=== PATIENT | male | born 1940 | race Hispanic/Latino ===

== ENCOUNTER 2020-06-03 23:12 | Inpatient (IN) | payer MEDICARE, OTHER ==
[2020-06-03 23:45] LABS: #Basophils 0.1 thou/uL (0.0-0.2); #Eosinphils 0.2 thou/uL (0.0-0.7); #Lymphocytes 0.9 thou/uL (1.20-3.40); #Monocytes 0.6 thou/uL (0.11-0.59); #Neutrophils 6.4 thou/uL (1.40-6.50); %Basophils 1.2 % (0.0-1.0); %Eosinophils 2.1 % (0.0-10.0); %Lymphocytes 10.8 % (21.0-51.0); Hemoglobin 10.8 g/dL (14.0-18.0); Mean Corpuscular HGB CONC 30.8 g/dL (32.0-36.0); Mean Corpuscular Hemoglobin 25.7 pg (27.0-31.0); Mean Corpuscular Volume 83.4 fL (78.0-98.0); Mean Platelet Volume 9.7 fL (7.4-10.4); Platelet Count 218 thou/uL (130-400); RBC Distribution Width 16.5 % (11.5-14.5); Red Blood Cell (RBC) Count 4.19 mill/uL (4.70-6.10); White Blood Cell (WBC) Count 8.1 thou/uL (4.8-10.8)
--- NOTE | 2020-06-03 23:58 | RAD ---
XR Chest 1 View Portable History: Dyspnea Comparison: Radiograph May 20, 2020 Findings: Heart size is enlarged. Mild pulmonary edema. Layering pleural effusion on the right. Atelectasis in left lung base. No pneumothorax. Repeat debris projects over the right hemithorax. Impression: Mild decompensated congestive heart failure.
[2020-06-04 00:10] LABS: ALT (SGPT) 31 U/L (8-55); AST (SGOT) 41 U/L (5-34); Albumin 3.7 g/dL (3.4-4.8); Alkaline Phosphatase 194 U/L (40-110); Anion Gap 15 mmol/L (10-20); BUN (Urea Nitrogen) 28 mg/dL (8.4-25.7); Bilirubin, Total 0.8 mg/dL (0.2-1.2); Calc. Creatinine Clearance 0 mL/min (70-130); Calcium 9.4 mg/dL (7.8-10.44); Carbon Dioxide 27 mmol/L (23-31); Chloride 97 mmol/L (98-107); Estimated GFR-MDRD 43; Globulin 4.1 g/dL (2.4-3.5); Glucose 151 mg/dL (83-110); Potassium 5.7 mmol/L (3.5-5.1); Protein, Total 7.8 g/dL (5.8-8.1); Sodium 133 mmol/L (136-145)
[2020-06-04 00:20] LABS: Bilirubin Negative (Negative); Blood, Urine 2+ (Negative); Clarity Clear (Clear); Glucose, Urine (Dipstick) Normal (Negative); Ketone, Urine Negative (Negative); Leukocyte 500 Leu/uL (Negative); Nitrite Negative (Negative); Protein, Urine (Dipstick) 50 mg/dL (Neg-Trace); RBC/HPF 21-50 HPF (0-3); Specific Gravity, Urine 1.009 (1.002-1.036); Squamous Epithelial None Seen HPF (0-3); Urobilinogen Normal mg/dL (Less than 2); WBC/HPF 21-50 HPF (0-3); pH, Urine 6.5 (5.0-9.0)
[2020-06-04 00:22] LABS: Bacteria/HPF 1+ HPF (None Seen)
[2020-06-04] MEDS ORDERED: Furosemide 40 MG/4 ML VIAL ONE (00:44)
[2020-06-04] MEDS ORDERED: cefTRIAXone\\ROCEPHIN 2 GM VIAL ONE (00:44)
[2020-06-04 00:54] LABS: CKMB 3.3 ng/mL (0-6.6)
[2020-06-04 02:08] LABS: Analyzer IN Cardio ER; CO2 Tension 39.4 mmHg (35.0-45.0); Calcium, Ionized (arterial) 1.21 mmol/L (1.12-1.30); Carboxyhemoglobin (COHb) 1.4 gm% (0.0-3.0); Hemoglobin (Hb) 11.7 g/dL (14.0-18.0); Potassium - ABG Lab 4.46 mmol/L (3.70-5.30); pH, Arterial 7.45 (7.35-7.45)
[2020-06-04 02:13] LABS: O2 Tension (PaO2), arterial 51.3 mmHg (> 70.0)
[2020-06-04 02:14] LABS: Puncture Site L RADIAL
[2020-06-04 05:09] VITALS: BMI 28.0
[2020-06-04 05:38] LABS: Troponin I 0.076 ng/mL (< 0.028)
[2020-06-04] MEDS ORDERED: Senokot S 8.6-50 MG TAB PO PRN (09:54)
[2020-06-04] MEDS ORDERED: Acetaminophen 325 MG TAB PO PRN (09:54)
[2020-06-04] MEDS ORDERED: Vancomycin HCl 1.25 GM in Sodium Chloride 0.9% 250 ML 250 ML IVPB SCH (12:00)
[2020-06-04] MEDS ORDERED: hydrALAZINE 25 MG TAB PO SCH (12:15)
[2020-06-04] MEDS ORDERED: Apixaban 5 MG TAB PO SCH ×2 (12:15→21:00)
[2020-06-04] MEDS ORDERED: clonazePAM 0.5 MG TAB PO SCH ×2 (12:15→21:00)
[2020-06-04 12:45] LABS: #Basophils 0.1 thou/uL (0.0-0.2); #Eosinphils 0.1 thou/uL (0.0-0.7); #Lymphocytes 0.6 thou/uL (1.20-3.40); #Monocytes 0.5 thou/uL (0.11-0.59); #Neutrophils 4.2 thou/uL (1.40-6.50); %Basophils 1.5 % (0.0-1.0); %Eosinophils 2.5 % (0.0-10.0); %Lymphocytes 11.6 % (21.0-51.0); %Monocytes 8.1 % (0.0-10.0); %Neutrophils 76.3 % (42.0-75.0); Mean Corpuscular Hemoglobin 26.8 pg (27.0-31.0); Mean Corpuscular Volume 83.8 fL (78.0-98.0); Mean Platelet Volume 8.5 fL (7.4-10.4); Platelet Count 192 thou/uL (130-400); RBC Distribution Width 16.2 % (11.5-14.5); Red Blood Cell (RBC) Count 3.73 mill/uL (4.70-6.10); White Blood Cell (WBC) Count 5.5 thou/uL (4.8-10.8)
[2020-06-04 13:11] LABS: ALT (SGPT) 28 U/L (8-55); AST (SGOT) 25 U/L (5-34); Albumin 3.4 g/dL (3.4-4.8); Alkaline Phosphatase 182 U/L (40-110); Anion Gap 14 mmol/L (10-20); BUN (Urea Nitrogen) 26 mg/dL (8.4-25.7); Bilirubin, Total 0.7 mg/dL (0.2-1.2); Calc. Creatinine Clearance 50 mL/min (70-130); Calcium 8.9 mg/dL (7.8-10.44); Carbon Dioxide 28 mmol/L (23-31); Chloride 98 mmol/L (98-107); Estimated GFR-MDRD 47; Globulin 3.3 g/dL (2.4-3.5); Glucose 182 mg/dL (83-110); Potassium 4.2 mmol/L (3.5-5.1); Protein, Total 6.7 g/dL (5.8-8.1); Sodium 136 mmol/L (136-145)
[2020-06-04 13:19] LABS: Troponin I 0.099 ng/mL (< 0.028)
[2020-06-04] MEDS ORDERED: Piperacillin/Tazobactam 3.375 GM in Sodium Chloride 0.9% 100 ML IVPB SCH (14:00)
[2020-06-04 14:51] LABS: SARS-CoV-2 MS2 Positive; SARS-CoV-2 N Gene Negative; SARS-CoV-2 S Gene Negative; SARS-CoV-2 by NAA Not Detected (NotDetected); SARS-CoV-2 orf1ab Negative
[2020-06-04 15:46] LABS: Actual Bicarbonate (HCO3a) 28.9 mEq/L (22-28); Base Excess (BEa) 4.3 mEq/L (-2.0 to +3.0); CO2 Tension 43.5 mmHg (35.0-45.0); Calcium, Ionized (arterial) 1.18 mmol/L (1.12-1.30); Carboxyhemoglobin (COHb) 1.6 gm% (0.0-3.0); Hemoglobin (Hb) 10.6 g/dL (14.0-18.0); O2 Tension (PaO2), arterial 72.1 mmHg (> 70.0); Potassium - ABG Lab 4.03 mmol/L (3.70-5.30); pH, Arterial 7.44 (7.35-7.45)
[2020-06-04 15:48] LABS: ALV-art Gradient 115.945 mmHg (0-20)
[2020-06-04] MEDS: Piperacillin/Tazobactam 3.375 GM in Sodium Chloride 0.9% 100 ML IVPB SCH ×2 (15:57→21:01)
[2020-06-04] MEDS ORDERED: Atropine Sulfate 0.4 mg/1 ml Vial IVP SCH (16:30)
[2020-06-04] MEDS: DOBUTamine 500 mg/250 ml 250 ML IVPB SCH (17:38)
--- NOTE | 2020-06-04 19:44 | CT ---
CT Chest WO Con History: Dyspnea. Abnormal chest x-ray Comparison: Radiograph prior day Findings: Large bilateral layering pleural effusions. Mild pulmonary edema. No definite pneumonia is appreciated. Compressive atelectasis within both lower lobes. The exam was performed in expiration. No pneumothorax. Radiopaque debris projects over the right lateral chest wall. Moderate stool burden within the upper abdomen, incompletely evaluated. No pleural nodularity. Aortic contour is nonaneurysmal. Pulmonary trunk is enlarged. Mildly prominent likely reactive paratr acheal and AP window lymph nodes. Diffuse etiopathic skeletal hyperostosis thoracic spine. Motion artifact of the manubrium. No acute displaced rib fracture. Nodular mass just behind the left nipple. Impression: 1. Decompensated congestive heart failure. 2. Nodular mass just under left nipple may reflect gynecomastia. Diagnostic mammography nonemergent r ecommended clinically warranted.
[2020-06-04] MEDS ORDERED: Vancomycin HCl 1.75 GM in Sodium Chloride 0.9% 500 ML IVPB SCH (21:00)
[2020-06-04] MEDS: hydrALAZINE 25 MG TAB PO SCH (21:01)
[2020-06-04] MEDS: Tamsulosin HCl 0.4 MG CAP PO SCH (21:02)
[2020-06-04] MEDS ORDERED: Cepastat Lozenges 1 LOZ PO PRN (22:16)
--- NOTE | 2020-06-05 00:22 | HP ---
CHIEF COMPLAINT: Shortness of breath, confusion, hypoxia. HISTORY OF PRESENT ILLNESS: The patient is a 79-year-old male, who was transferred from [facility] with acute confusion and hypoxia. The patient was discharged on 05/27/2020 from [facility] for which over there he was treated for bacteremia with Providencia stuartii, hypokalemia, cellulitis of the lower extremity, and sepsis. He was also noted to have pulmonary edema. At this time, he was sent home with oral antibiotics to complete a seven-day course which he did. The patient was noted to be confused at the [facility] and was brought here for further evaluation. Per the ER records, the patient was noted to be more confused than his baseline and was noted to have low oxygen levels. At this time, he was brought into the hospital for further evaluation. The patient currently denies any chest pain, shortness of breath, however, he does complain of unable to ambulate very much. REVIEW OF SYSTEMS: All negative except for the ones mentioned above in the HPI. PAST MEDICAL HISTORY: He has a history of: 1. Atrial fibrillation. 2. Bradycardia, unclear if it is junctional or atrial fibrillation with slow ventricular response. 3. Diabetes. PAST SURGICAL HISTORY: He has had a cholecystectomy, an open procedure with a very large abdominal incision scar. This was about 45 to 50 years ago, and was performed in [place]. MEDICATION: Per his last discharge medications, he is on the following medications: 1. Omnicef 300 mg twice a day for 7 days, which he completed. 2. Amlodipine 5 mg twice a day. 3. Eliquis 5 mg twice a day. 4. Hydralazine 25 mg b.i.d. 5. Protonix 40 mg daily. 6. Florastor 250 mg daily. 7. Tessalon Perles three times a day as needed. ALLERGIES: HE HAS NO KNOWN DRUG ALLERGIES. CODE STATUS: He is a full code. SOCIAL HISTORY: He denies any smoking history. He has a history of alcohol use. No drug use. PHYSICAL EXAMINATION: VITAL SIGNS: As of the following; temperature of 98.5, 55, 20, 93% on 2 L, 151/67. GENERAL: He is awake, oriented x2. CV: S1, S2 present. Sinus joanna noticed on checking his pulse. LUNGS: He has crackles to bilateral lower lung bases. ABDOMEN: Soft. Bowel sounds are present x2. Pain upon palpation to lower abdomen area. EXTREMITIES: He has significant venous changes. Pedal pulses are present bilaterally. He has also some old dry skin noted to bilateral lower extremities. NEUROVASCULAR: No focal deficits noted. SKIN: As I mentioned, significant venous stasis changes to his lower extremity and significant dry skin noted. LABORATORY RESULTS: As of the following: Sodium of 136, potassium of 4.2, BUN 26, creatinine 1.46. His troponin was 0.099. His procalcitonin was 0.08. His hematology; his WBC is 5.5, hemoglobin of 10.0, hematocrit of 31.2, platelets of 192. His COVID test was negative. His urine had some leukocyte esterase of 500, white blood cells of 21-50, no squamous epithelial cells. He did have a chest x-ray which according to my interpretation appears to have possible infiltrate on his right versus pulmonary edema. ASSESSMENT AND PLAN: The patient is a very pleasant 79-year-old male, who presents to the hospital with complaints of shortness of breath, hypoxia, and confusion. 1. Acute hypoxic respiratory failure. The patient had an ABG done which indicated a pO2 of 51.3. He was put initially on high-flow, then was changed to nasal cannula. So far, he is doing well. 2. Possible heart failure versus pneumonia. However, his BNP was only mildly elevated at 177. I will go ahead and get a CT of chest without contrast. We will start him on some broad-spectrum antibiotics for possible hospital-acquired pneumonia for now, and we will continue to monitor this patient. 3. Acute metabolic encephalopathy, most likely secondary to problem #1. His mentation currently has improved. We will continue to monitor. 4. Bradycardia, significant. The patient dips down to the 30s, when he sleeps. His EKG appears to be possible junctional versus atrial fibrillation with slow ventricular response. I did look up the notes from Dr. Ferrer who is the sales support manager that he was seeing at the [facility]. Given his recent infection, the pacemaker was not placed due to his bacteremia. I will consult Cardiology and continue to monitor the patient. 5. Chronic kidney disease stage 3. We will continue to monitor. 6. Mildly elevated troponins could be demand related. He does have significant bradycardia. However, his blood pressure is okay. We will continue to monitor him. 7. DVT prophylaxis. The patient is already on Eliquis. We will continue to monitor. 8. We will hold all AV-jacob medications that could affect his heart rate. We will hold all of that. Job ID: [id number]
[2020-06-05] MEDS ORDERED: Dextrose 5% in Water 1,000 ML IV PRN (00:47)
[2020-06-05] MEDS ORDERED: Dextrose 50% Abboject 50 ML SYRINGE SLOW IVP PRN (00:47)
[2020-06-05] MEDS: Piperacillin/Tazobactam 3.375 GM in Sodium Chloride 0.9% 100 ML IVPB SCH ×4 (03:32→21:22)
[2020-06-05 04:10] LABS: #Basophils 0.1 thou/uL (0.0-0.2); #Eosinphils 0.3 thou/uL (0.0-0.7); #Lymphocytes 0.7 thou/uL (1.20-3.40); #Monocytes 0.6 thou/uL (0.11-0.59); #Neutrophils 3.9 thou/uL (1.40-6.50); %Basophils 1.5 % (0.0-1.0); %Eosinophils 4.9 % (0.0-10.0); %Lymphocytes 12.6 % (21.0-51.0); Hemoglobin 9.9 g/dL (14.0-18.0); Mean Corpuscular HGB CONC 31.7 g/dL (32.0-36.0); Mean Corpuscular Hemoglobin 26.9 pg (27.0-31.0); Mean Corpuscular Volume 84.9 fL (78.0-98.0); Mean Platelet Volume 8.7 fL (7.4-10.4); Platelet Count 189 thou/uL (130-400); RBC Distribution Width 16.4 % (11.5-14.5); Red Blood Cell (RBC) Count 3.68 mill/uL (4.70-6.10); White Blood Cell (WBC) Count 5.5 thou/uL (4.8-10.8)
[2020-06-05 04:30] LABS: ALT (SGPT) 25 U/L (8-55); AST (SGOT) 20 U/L (5-34); Albumin 3.2 g/dL (3.4-4.8); Alkaline Phosphatase 163 U/L (40-110); Anion Gap 13 mmol/L (10-20); BUN (Urea Nitrogen) 27 mg/dL (8.4-25.7); Bilirubin, Total 0.5 mg/dL (0.2-1.2); Calc. Creatinine Clearance 49 mL/min (70-130); Calcium 8.8 mg/dL (7.8-10.44); Carbon Dioxide 29 mmol/L (23-31); Chloride 98 mmol/L (98-107); Estimated GFR-MDRD 46; Globulin 3.1 g/dL (2.4-3.5); Glucose 174 mg/dL (83-110); Potassium 3.6 mmol/L (3.5-5.1); Protein, Total 6.3 g/dL (5.8-8.1); Sodium 136 mmol/L (136-145)
[2020-06-05] MEDS ORDERED: Furosemide 40 MG/4 ML VIAL SLOW IVP SCH (07:45)
[2020-06-05] MEDS: hydrALAZINE 25 MG TAB PO SCH ×2 (08:43→21:12)
[2020-06-05] MEDS: Enoxaparin Sodium 80 MG/0.8 ML SYRINGE SC SCH ×2 (08:43→21:12)
[2020-06-05] MEDS: Saccharomyces boulardii 250 MG CAP PO SCH (08:44)
[2020-06-05] MEDS ORDERED: Enoxaparin Sodium 40 MG/0.4 ML SYRINGE SC SCH (09:00)
[2020-06-05] MEDS ORDERED: Polyethylene Glycol 3350 17 GM Packet PO SCH (09:00)
--- NOTE | 2020-06-05 10:36 | CON ---
DATE OF CONSULTATION: HISTORY OF PRESENT ILLNESS: Vin Chaudhari is a 79-year-old male originally from [place], is mostly Citizen Of [place]-speaking only and history is obtained from review of the chart from [facility]. He presented there on May 20, 2020, with abdominal pain. He was found to have urinary retention, and a Doss was placed with 3600 mL of urine drained. He also had significant hydroureteronephrosis on abdominal CT. He was found to have bacteremia with Providencia stuartii and was treated with vancomycin and Zosyn. He was then discharged on p.o. Omnicef. He had chronic kidney disease with creatinine of 2.32 originally, it was fell to 1.48 with catheter drainage. Echocardiogram revealed ejection fraction of 55% to 60% with moderate aortic stenosis with a mean gradient of 24 mm, aortic valve area 1.2 cm2, mild left ventricular hypertrophy, moderate biatrial enlargement, mild tricuspid regurgitation, mild pulmonic insufficiency. He also had significant bradycardia. It was felt that he had atrial fibrillation with slow ventricular response. There was some thought to pacemaker placement since he had heart rates in the 30s at times; however, with his bacteremia, it was felt that was not appropriate. Ultimately, his heart rate improved to the 50 to 60 per minute range and it was felt that his initial bradycardia was possibly due to vasovagal reaction from his severely distended bladder. He ultimately was transferred to [facility] for rehab. He was noted to be confused and hypoxic, was sent to the emergency room for further evaluation. EKG revealed junctional bradycardia with rate of 36 per minute. At times on his EKG, it appears that he has atypical flutter and other times probable atrial fibrillation; although, atrial standstill could also be a possibility. I recommended that he will be placed on low-dose dobutamine and with this, his heart rate in general has been in the upper 40s and 50s. At the present time, he denies any chest pains or shortness of breath. PAST MEDICAL HISTORY: Severe bradycardia with atrial arrhythmias, diabetes, hypertension, and aortic stenosis. PAST SURGICAL HISTORY: Open cholecystectomy. MEDICATIONS: 1. Lispro 2 to 3 units p.r.n. 2. Norvasc 5 mg daily. 3. Eliquis 5 mg b.i.d. 4. Omnicef 300 mg q.12 hours. 5. Klonopin 0.5 b.i.d. p.r.n. 6. Clonidine 0.1 q.6 hours p.r.n. 7. Apresoline 25 mg b.i.d. 8. Protonix 40 daily. 9. Flomax 0.4 daily. 10. Ambien p.r.n. ALLERGIES: NONE. SOCIAL HISTORY: He does not smoke. He drank in the past. PHYSICAL EXAMINATION: VITAL SIGNS: Blood pressure 165/82, pulse of 53 junctional rhythm on the monitor. HEENT: PERRL. NECK: Supple. CHEST: Clear. CARDIAC: S1 and S2 normal without any S3 or S4. There is a 2-3/6 systolic murmur heard throughout the precordium. ABDOMEN: Normal bowel sounds without tenderness. EXTREMITIES: Revealed significant venous stasis changes with dry skin and discoloration. NEUROLOGIC: Grossly intact. SKIN: Warm and dry. LABORATORY DATA: EKG findings as above with some EKG showing atypical flutter, others probable atrial fibrillation, although could also represent atrial standstill and junctional escape rhythm. There is nonspecific ST and T-wave changes. Echo findings from [facility] as noted above. Hemoglobin 9.9, hematocrit 31.3, white count 5500, platelets 189,000. A pH 7.44, pCO2 of 43.5, pO2 of 72.1. Initial pO2 was 51.3. Sodium 136, potassium 3.6, chloride 98, carbon dioxide 29, BUN 27, and creatinine 1.48. Troponin I 0.099. COVID negative. Chest CT revealed large bilateral pleural effusions, mild pulmonary edema. IMPRESSION: 1. Mental status changes, which probably multifactorial from his bradycardia and hypoxemia. 2. Significant junctional bradycardia with heart rates in the 30s at times. He also appears to have underlying atypical atrial flutter at times and at other times probable atrial fibrillation, although atrial standstill cannot be excluded. 3. Recent hospitalization at [facility], where he was found to have bacteremia with Providencia stuartii. 4. Chronic kidney disease. 5. Diabetes. 6. Kjx-CF-fagqngeyk myocardial infarction, type 2. 7. Significant urinary retention with hydroureteronephrosis. PLAN: Later in the day, I will re-discuss with the patient when his son is here and engineering professionals is available. I would discontinue the Eliquis and instead place him on Lovenox since he appears to need pacemaker placed. Also consultation should be obtained with Dr. Rosas in regard to timing of pacemaker insertion with his recent septic and bacteremic episode. Currently, he is on Zosyn and vancomycin, although the vancomycin has been discontinued. He has received intravenous Lasix and put out 2775 mL of urine and his hypoxemia appears to improve somewhat. Job ID: [id number] [facility]
--- NOTE | 2020-06-05 14:15 | PDOC.HOSPP ---
- Subjective Encounter Date: 06/05/20 Encounter Time: 11:15 Subjective: pt up in bed more awake today. - Objective Vital Signs & Weight: Vital Signs (12 hours) Temp Pulse Resp BP BP Pulse Ox 06/05/20 08:43 53 L 165/82 H 06/05/20 08:35 48 L 131/60 06/05/20 07:11 98.3 F 53 L 16 165/82 H 97 06/05/20 03:11 98.7 F 54 L 20 130/58 L 95 Weight Weight 181 lb 14.4 oz I&O: 06/04/20 06/05/20 06/06/20 06:59 06:59 06:59 Intake Total 930 Output Total 2775 Balance -1845 Result Diagrams: 06/05/20 03:31 06/05/20 03:31 Additional Labs: Accuchecks 06/05/20 06/04/20 06/04/20 10:43 23:36 17:08 POC Glucose 182 H 124 H 112 H Hospitalist ROS - Review of Systems Cardiovascular: denies: chest pain, palpitations, orthopnea, paroxysmal noc. dyspnea, edema, light headedness, other Gastrointestinal: denies: nausea, vomiting, abdominal pain, diarrhea, con stipation, melena, hematochezia, other Genitourinary: denies: dysuria, frequency, incontinence, hematuria, retention, other - Medication Medications: Active Medications Generic Name Dose Route Start Last Admin Trade Name Freq PRN Reason Stop Dose Admin Enoxaparin Sodium 80 mg 06/05/20 09:00 06/05/20 08:43 Enoxaparin Sodium 80 Mg/0.8 Ml Syringe SC 80 mg 0900,2100 LUCI Administration Hydralazine HCl 25 mg 06/04/20 21:00 06/05/20 08:43 Hydralazine 25 Mg Tab PO 25 mg BID LUCI Administration Piperacillin Sod/Tazobactam 100 mls @ 200 mls/hr 06/04/20 15:00 06/05/20 08:44 Sod 3.375 gm/ Sodium Chloride IVPB 100 mls 0300,0900,1500,2100 LUCI Administration Dobutamine HCl/Dextrose 250 mls @ 6.464 mls/hr 06/04/20 17:00 06/04/20 17:38 Dobutamine 500 Mg/250 Ml IVPB 250 mls INF LUCI Administration Protocol 2.5 MCG/KG/MIN Polyethylene Glycol 17 gm 06/05/20 09:00 06/05/20 08:44 Polyethylene Glycol 3350 17 Gm Packet PO 17 gm DAILY LUCI Administration Saccharomyces Boulardii 250 mg 06/05/20 09:00 06/05/20 08:44 Saccharomyces Boulardii 250 Mg Cap PO 250 mg DAILY LUCI Administration Sodium Chloride 10 ml 06/04/20 21:00 06/05/20 08:44 Flush - Normal Saline 10 Ml Syringe IVF 10 ml Q12HR LUCI Administration Tamsulosin HCl 0.4 mg 06/04/20 21:00 06/04/20 21:02 Tamsulosin Hcl 0.4 Mg Cap PO 0.4 mg HS LUCI Administration - Exam Neck: negative: supple, symmetric, no JVD, no thyromegaly, no lymphadenopathy, no carotid bruit, JVD Heart: negative: RRR, no murmur, no gallops, no rubs, normal peripheral pulses, irregular, diminshed peripheral pulses, murmur present, II/IV, III/IV Respiratory: negative: CTAB, no wheezes, no rales, no ronchi, normal chest expansion, no tachypnea, normal percussion, rales, rhonchi, tachypneic, wheezes Gastrointestinal: negative: soft, non-tender, non-distended, normal bowel sounds, no palpable masses, no hepatomegaly, no splenomegaly, no bruit, no guarding, no rigidity, tender to palpation, distended, diminished bowl sounds, voluntary guarding Hosp A/P (1) Acute respiratory failure with hypoxia Code(s): J96.01 - ACUTE RESPIRATORY FAILURE WITH HYPOXIA Status: Acute (2) Atrial fibrillation with slow ventricular response Code(s): I48.91 - UNSPECIFIED ATRIAL FIBRILLATION Status: Acute (3) Diabetes mellitus Code(s): E11.9 - TYPE 2 DIABETES MELLITUS WITHOUT COMPLICATIONS Status: Acute (4) Urinary retention Code(s): R33.9 - RETENTION OF URINE, UNSPECIFIED Status: Acute (5) Aortic stenosis Code(s): I35.0 - NONRHEUMATIC AORTIC (VALVE) STENOSIS Status: Acute - Plan will stop abx since his ct chest indicated bilateral pleural effusion. Patient has significant bradycardia last night. Was put on dobutamine drip. Patient has been bradycardic in the past however unable to put in a pacemaker given patient's bacteremia and his previous hospitalization. Will consult physical therapy. Possible discharge to rehab next 24 to 48 hours. Patient's Eliquis has been discontinued and is put on Lovenox for pacemaker placement.
[2020-06-05] MEDS: Tamsulosin HCl 0.4 MG CAP PO SCH (21:12)
[2020-06-05] MEDS: Polyethylene Glycol 3350 17 GM Packet PO SCH (22:00)
[2020-06-06 04:21] LABS: #Basophils 0.1 thou/uL (0.0-0.2); #Eosinphils 0.4 thou/uL (0.0-0.7); #Monocytes 0.5 thou/uL (0.11-0.59); #Neutrophils 2.9 thou/uL (1.40-6.50); %Basophils 1.5 % (0.0-1.0); %Eosinophils 7.7 % (0.0-10.0); %Lymphocytes 20.3 % (21.0-51.0); %Monocytes 10.9 % (0.0-10.0); %Neutrophils 59.7 % (42.0-75.0); Hemoglobin 9.4 g/dL (14.0-18.0); Mean Corpuscular HGB CONC 30.7 g/dL (32.0-36.0); Mean Corpuscular Hemoglobin 25.6 pg (27.0-31.0); Mean Corpuscular Volume 83.3 fL (78.0-98.0); Platelet Count 195 thou/uL (130-400); RBC Distribution Width 16.3 % (11.5-14.5); Red Blood Cell (RBC) Count 3.69 mill/uL (4.70-6.10); White Blood Cell (WBC) Count 4.9 thou/uL (4.8-10.8)
[2020-06-06 04:41] LABS: Anion Gap 14 mmol/L (10-20); BUN (Urea Nitrogen) 20 mg/dL (8.4-25.7); Calc. Creatinine Clearance 50 mL/min (70-130); Calcium 8.6 mg/dL (7.8-10.44); Carbon Dioxide 27 mmol/L (23-31); Chloride 98 mmol/L (98-107); Estimated GFR-MDRD 49; Glucose 113 mg/dL (83-110); Potassium 3.5 mmol/L (3.5-5.1); Sodium 135 mmol/L (136-145)
[2020-06-06] MEDS: Piperacillin/Tazobactam 3.375 GM in Sodium Chloride 0.9% 100 ML IVPB SCH ×4 (04:42→22:18)
[2020-06-06] MEDS: DOBUTamine 500 mg/250 ml 250 ML IVPB SCH (04:53)
--- NOTE | 2020-06-06 08:14 | CON ---
DATE OF CONSULTATION: REASON FOR CONSULTATION: Regarding eligibility for device implantation in the face of recent infection. HISTORY OF PRESENT ILLNESS: A 79-year-old, whom I have seen recently few days ago at [facility], where he presented with history of type 2 diabetes, venous insufficiency, stasis dermatitis, and progressively worsening abdominal distention and pain in the suprapubic area. He was brought to the emergency room at [facility]. On arrival, his BP was elevated, he was tachypneic and saturating at 92 on room air. He was in acute distress with abdominal pain. Abdomen was tender and there was some rigidity. CT of abdomen demonstrated a markedly distended urinary bladder displacing the bowel loops, dilated ureters, and renal collecting systems. There was a large volume of stool markedly expanding rectum and edema throughout the subcutaneous fat surrounding the abdominal cavity and pelvic cavity. No evidence of pneumatosis was identified. So, Doss catheter was inserted, distention was relieved with marked improvement in clinical symptoms and he was placed on broad-spectrum coverage. The subsequent clinical course was remarkable for continuing improvement. He had Providencia, been referred from the urine culture, was resistant to quinolones, susceptible to third generation cephalosporins and aminoglycosides and Bactrim as well as piperacillin/tazobactam. He had a successful voiding trial and the creatinine went down to 1.35 and echocardiogram with EF of 55% to 60% with moderate aortic stenosis. He returns at this time to the [place] location with altered mental status, hypoxemia from the group home. He had been, in contrast following the recent admission and then on arrival, he was oriented x4 as noted by the ER physician and his BP 170/70, pulse 48, respirations 28, temperature 98.1, and O2 saturations were 92. The lungs with diminished breath sounds. Increased work of breathing. The abdomen showed nontender findings. No distention. Extremity examination is unremarkable. Other findings showed a white cell count 8.1, hemoglobin 10.8, platelets 218 with 79% neutrophils. Creatinine was 1.48. Liver profile normal except for alkaline phosphatase of 163 and albumin of 3.2. Urinalysis with 21 to 50 wbc's. COVID was not detected. Cultures thus far no growth, 48 hours. Two sets of blood culture, no growth. The patient had a chest CT scan done and showed decompensated CHF, nodular mass probably gynecomastia. He had a Doss catheter still in place. I am not sure that he actually was discharged without a Doss catheter from the [facility] in the recent admission. This is not clear in the discharge summary from Dr. Dominic Lockwood. Currently, the patient was noted to be confused and hard to obtain a proper review of systems. He has been evaluated by Dr. Hyde because of junctional bradycardia that maybe a typical flutter, but other times atrial fibrillation. He was placed on low-dose dobutamine and the heart rates have been in the upper 40s and 50s and I believe that there are lot of discussions going on regarding placement of a pacemaker. PAST MEDICAL HISTORY: Includes type 2 diabetes, moderate aortic stenosis, BPH, urinary retention, constipation, osteoarthritis, hypertension, atrial fibrillation/flutter, and UTI with a recent episode of urinary retention with Providencia species. PAST SURGICAL HISTORY: Cholecystectomy. SOCIAL HISTORY: No smoking, had been living at home with family and then transferred to [facility] after his decompensation that led to [facility] admission. ALLERGIES: NONE. CURRENT MEDICATIONS: Include; 1. Dobutamine. 2. Norvasc. 3. Lovenox. 4. Insulin. 5. Protonix. 6. Zosyn. FAMILY HISTORY: Noncontributory. PHYSICAL EXAMINATION: VITAL SIGNS: Current vital signs; temperature is normal, pulse of 46, respirations 18, O2 saturation 97, and BP 136/60. SKIN/EXTREMITIES: Stasis dermatitis in the lower extremities. Doss catheter, peripheral IV access. No lymphadenopathy. Lipodermatosclerosis in the lower extremities. Pulses 1+ in dorsalis pedis. Onychodystrophy. HEENT: Ocular movements are conjugate. Sclerae are white. Pupils are equal. Nasal passages are patent. Oral cavity with no remaining teeth. NECK: Supple with jugular vein distention. LUNGS: With symmetric air entry. A few crackles at bases. No wheezing. S1 and S2. Systolic murmur at the apex, but no S3. ABDOMEN: Soft. No tenderness. No distention. No ascites. No organomegaly. NEUROLOGIC: He has no focal weakness, though he is awake. He follows commands, a bit more oriented than on admission. LABORATORY DATA: The latest of findings; white cell count 4.9, hemoglobin 9.4, platelets 195, 59% neutrophils, and 20% lymphocytes. Creatinine down to 1.39. ASSESSMENT AND DISCUSSION: Type 2 diabetes, recent episode of urinary retention due to the lack of admission to [facility]. As the patient had Doss catheter inserted, I do not think he had a successful voiding trial and thus being transferred with a Doss catheter, although this is not clear. Does have a Doss catheter at this moment. There are no issues with urinary retention. He has expected abnormal urinalysis and has developed bradycardia and is being considered for possible device placement, management. If the cultures remain negative, I would discontinue antimicrobial therapy. We cleared him for placement of the device. I think tomorrow we should have the final results of these cultures. Discontinuation of antimicrobial therapy then would be advisable. As long as he remains with a Doss catheter, he will be at risk for invasive urinary tract infections. He is already on Flomax and may be able to have a successful voiding trial. Job ID: [id number]
[2020-06-06 08:50] LABS: Hemoglobin 10.1 g/dL (14.0-18.0); Platelet Count 202 thou/uL (130-400)
[2020-06-06] MEDS: Saccharomyces boulardii 250 MG CAP PO SCH (09:34)
[2020-06-06] MEDS: hydrALAZINE 25 MG TAB PO SCH ×2 (09:35→22:17)
[2020-06-06] MEDS: Enoxaparin Sodium 80 MG/0.8 ML SYRINGE SC SCH ×2 (09:35→22:18)
[2020-06-06] MEDS: Amlodipine 5 MG TAB PO SCH (09:35)
[2020-06-06] MEDS: Polyethylene Glycol 3350 17 GM Packet PO SCH ×2 (09:36→22:18)
[2020-06-06] MEDS ORDERED: Furosemide 40 MG/4 ML VIAL SLOW IVP SCH (10:45)
--- NOTE | 2020-06-06 15:49 | EKG ---
Test Reason : Blood Pressure : / mmHG Vent. Rate : 036 BPM Atrial Rate : 023 BPM P-R Int : 000 ms QRS Dur : 090 ms QT Int : 530 ms P-R-T Axes : 000 087 158 degrees QTc Int : 409 ms Junctional bradycardia Cannot rule out Anterior infarct , age undetermined Abnormal ECG Confirmed by ENRRIQUE MILLER M.D. ([id number] on 06/06/2020 3:49:18 PM Referred By: NORA Confirmed By:ENRRIQUE MILLER M.D.
[2020-06-06] MEDS: HumaLOG 300 UNITS/3 ML VIAL SC PRN (18:03)
[2020-06-06] MEDS: Tamsulosin HCl 0.4 MG CAP PO SCH (22:17)
[2020-06-07] MEDS: Piperacillin/Tazobactam 3.375 GM in Sodium Chloride 0.9% 100 ML IVPB SCH (04:46)
--- NOTE | 2020-06-07 07:21 | PDOC.HOSPP ---
- Subjective Encounter Date: 06/06/20 Encounter Time: 10:30 Subjective: pt up in bed no complains. He does not want to get a pacemaker - Objective Vital Signs & Weight: Vital Signs (12 hours) Temp Pulse Resp BP BP Pulse Ox 06/07/20 04:43 98.7 F 40 L 18 134/64 99 06/06/20 22:17 53 L 134/59 L 06/06/20 20:03 98.7 F 53 L 20 134/59 L 97 Weight Weight 179 lb 1.6 oz I&O: 06/06/20 06/07/20 06/08/20 06:59 06:59 06:59 Intake Total 1398 720 Output Total 1850 2340 Balance -162 -0250 Result Diagrams: 06/06/20 08:38 06/06/20 08:38 Additional Labs: Accuchecks 06/07/20 06/06/20 06/06/20 05:47 20:42 17:22 POC Glucose 105 H 206 H 155 H 06/05/20 06:05 POC Glucose 117 H Hospitalist ROS - Review of Systems Cardiovascular: denies: chest pain, palpitations, orthopnea, paroxysmal noc. dyspnea, edema, light headedness, other Gastrointestinal: denies: nausea, vomiting, abdominal pain, diarrhea, constipation, melena, hematochezia, other Genitourinary: denies: dysuria, frequency, incontinence, hematuria, retention, other - Medication Medications: Active Medications Generic Name Dose Route Start Last Admin Trade Name Freq PRN Reason Stop Dose Admin Acetaminophen 650 mg 06/04/20 09:54 06/06/20 12:11 Acetaminophen 325 Mg Tab PO 650 mg Q4H PRN Administration Headache/Fever/Mild Pain (1-3) Amlodipine Besylate 5 mg 06/06/20 09:00 06/06/20 09:35 Amlodipine 5 Mg Tab PO 5 mg DAILY LUCI Administration Enoxaparin Sodium 80 mg 06/05/20 09:00 06/06/20 22:18 Enoxaparin Sodium 80 Mg/0.8 Ml Syringe SC 80 mg 0900,2100 LUCI Administration Hydralazine HCl 25 mg 06/04/20 21:00 06/06/20 22:17 Hydralazine 25 Mg Tab PO 25 mg BID LUCI Administration Piperacillin Sod/Tazobactam 100 mls @ 200 mls/hr 06/04/20 15:00 06/07/20 04:46 Sod 3.375 gm/ Sodium Chloride IVPB 100 mls 0300,0900,1500,2100 LUCI Administration Insulin Human Lispro 0 units 06/05/20 00:47 06/06/20 18:03 Humalog 300 Units/3 Ml Vial SC 2 unit .MILD SLIDING SCALE PRN Administration Mild Correctional Scale Pantoprazole Sodium 40 mg 06/06/20 09:00 06/06/20 09:35 Pantoprazole 40 Mg Tab PO 40 mg DAILY LUCI Administration Polyethylene Glycol 17 gm 06/05/20 21:00 06/06/20 22:18 Polyethylene Glycol 3350 17 Gm Packet PO Not Given BID LUCI Saccharomyces Boulardii 250 mg 06/05/20 09:00 06/06/20 09:34 Saccharomyces Boulardii 250 Mg Cap PO 250 mg DAILY LUCI Administration Sodium Chloride 10 ml 06/04/20 21:00 06/06/20 22:18 Flush - Normal Saline 10 Ml Syringe IVF 10 ml Q12HR LUCI Administration Tamsulosin HCl 0.4 mg 06/04/20 21:00 06/06/20 22:17 Tamsulosin Hcl 0.4 Mg Cap PO 0.4 mg HS LUCI Administration - Exam Heart: negative: RRR, no murmur, no gallops, no rubs, normal peripheral pulses, irregular, diminshed peripheral pulses, murmur present, II/IV, III/IV Respiratory: negative: CTAB, no wheezes, no rales, no ronchi, normal chest expansion, no tachypnea, normal percussion, rales, rhonchi, tachypneic, wheezes Gastrointestinal: negative: soft, non-tender, non-distended, normal bowel sounds, no palpable masses, no hepatomegaly, no splenomegaly, no bruit, no guarding, no rigidity, tender to palpation, distended, diminished bowl sounds, voluntary guarding Hosp A/P (1) Acute respiratory failure with hypoxia Code(s): J96.01 - ACUTE RESPIRATORY FAILURE WITH HYPOXIA Status: Acute (2) Atrial fibrillation with slow ventricular response Code(s): I48.91 - UNSPECIFIED ATRIAL FIBRILLATION Status: Acute (3) Diabetes mellitus Code(s): E11.9 - TYPE 2 DIABETES MELLITUS WITHOUT COMPLICATIONS Status: Acute (4) Urinary retention Code(s): R33.9 - RETENTION OF URINE, UNSPECIFIED Status: Acute (5) Aortic stenosis Code(s): I35.0 - NONRHEUMATIC AORTIC (VALVE) STENOSIS Status: Acute - Plan will stop abx since his ct chest indicated bilateral pleural effusion. Patient has significant bradycardia last night. Was put on dobutamine drip. Patient has been bradycardic in the past however unable to put in a pacemaker given patient's bacteremia and his previous hospitalization. Will consult physical therapy. Possible discharge to rehab next 24 to 48 hours. Patient's Eliquis has been discontinued and is put on Lovenox for pacemaker placement. 06/06 pt up in bed no complains he does not want to get a pacemaker. will stop his dobutamine drip. will give him one dose of lasix. will stop antibiotics.
[2020-06-07 07:42] LABS: #Basophils 0.1 thou/uL (0.0-0.2); #Eosinphils 0.4 thou/uL (0.0-0.7); #Lymphocytes 1.1 thou/uL (1.20-3.40); #Monocytes 0.4 thou/uL (0.11-0.59); #Neutrophils 1.7 thou/uL (1.40-6.50); %Basophils 2.3 % (0.0-1.0); %Eosinophils 10.7 % (0.0-10.0); %Lymphocytes 29.5 % (21.0-51.0); %Monocytes 9.6 % (0.0-10.0); Hemoglobin 9.8 g/dL (14.0-18.0); Mean Corpuscular HGB CONC 30.7 g/dL (32.0-36.0); Mean Corpuscular Hemoglobin 25.9 pg (27.0-31.0); Mean Corpuscular Volume 84.4 fL (78.0-98.0); Mean Platelet Volume 8.5 fL (7.4-10.4); Platelet Count 179 thou/uL (130-400); RBC Distribution Width 15.9 % (11.5-14.5); Red Blood Cell (RBC) Count 3.77 mill/uL (4.70-6.10); White Blood Cell (WBC) Count 3.6 thou/uL (4.8-10.8)
[2020-06-07 08:07] LABS: Anion Gap 12 mmol/L (10-20); BUN (Urea Nitrogen) 17 mg/dL (8.4-25.7); Calc. Creatinine Clearance 47 mL/min (70-130); Calcium 8.7 mg/dL (7.8-10.44); Carbon Dioxide 30 mmol/L (23-31); Chloride 97 mmol/L (98-107); Estimated GFR-MDRD 46; Glucose 95 mg/dL (83-110); Potassium 3.5 mmol/L (3.5-5.1); Sodium 135 mmol/L (136-145)
[2020-06-07] MEDS: Polyethylene Glycol 3350 17 GM Packet PO SCH (08:36)
[2020-06-07] MEDS: hydrALAZINE 25 MG TAB PO SCH (08:36)
[2020-06-07] MEDS: Amlodipine 5 MG TAB PO SCH (08:36)
[2020-06-07] MEDS: Saccharomyces boulardii 250 MG CAP PO SCH (08:36)
[2020-06-07] MEDS ORDERED: Apixaban 5 MG TAB PO SCH (09:00)
[2020-06-07] MEDS: HumaLOG 300 UNITS/3 ML VIAL SC PRN (17:55)
[2020-06-07 20:11] VITALS: BP 128/61; TEMP 99
--- NOTE | 2020-06-08 04:12 | DIS ---
DATE OF ADMISSION: 06/06/2020 DATE OF DISCHARGE: 06/07/2020 DISCHARGE DIAGNOSES: 1. Acute hypoxic respiratory failure. 2. Shortness of breath. 3. Bradycardia. 4. Aortic stenosis. 5. Urinary retention. 6. Diabetes. 7. Acute on chronic diastolic heart failure. HOSPITAL COURSE: The patient is a 79-year-old male who initially presented to the hospital with shortness of breath. He was found to be hypoxic. Initially thought to be possible volume overloaded versus pneumonia. I did order a CT chest and a procalcitonin. The Procalcitonin was negative. 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 The patient at this time was found to be really significantly bradycardic. Heart rate is in the 30s. At this time, cardiology was consulted. The patient was initially transiently put on dobutamine. Cardiology recommended a pacemaker, and he was supposed to get a pacemaker. However, his previous hospitalization, he had cellulitis and bacteremia, so at that time, pacemaker putting was held off. I spoke with the patient's son, Rahul, and also the patient. The patient refused to have a pacemaker put in. 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 He also has significant aortic stenosis. The patient was given a few doses of diuretics. He has been doing well. At this time, since he does not want any additional treatment in regard to his bradycardia, I will be discharging him back to [facility]. I did explain to him and the son that he has a high risk of coming back to the hospital and also high risk of not being able to do therapy, because his heart rate being so low and he has multiple other comorbidities. The patient again will be discharged back to rehab. HOME MEDICATIONS: 1. Lasix 40 mg as needed. 2. Tamsulosin 0.4 at bedtime. 3. Clonidine 0.1 as needed. 4. Norvasc 5 mg daily. 5. Eliquis 5 mg b.i.d. 6. Protonix 40 mg daily. 7. Hydralazine 25 mg b.i.d. 8. Lactulose as needed. 9. Florastor daily. DISCHARGE PHYSICAL EXAMINATION: VITAL SIGNS: Temperature of 98.0, heart rate 45, respiratory rate 14, O2 sat 93% on 2 L, blood pressure 128/62. GENERAL: He is awake, alert, and oriented x3. Does not appear in distress. CV: S1, S2 present. No murmurs, rubs, or gallops. ABDOMEN: Soft, nontender. Bowel sounds are present x2. EXTREMITIES: Lower extremity he does have chronic lower extremity skin changes, which appear stable. His creatinine was mildly elevated. Recommend checking another BMP in the next couple of days. Job ID: [id number]
== END 2020-06-07 20:00 | DRG 280 ==
LOC: ERS 23:12 → 2NO 06-04 02:27 → OBSVTOIN 06-06 11:04
PROVIDERS: ADMIT Internal Medicine; ATTEND Internal Medicine
DX: I13.0 Hypertensive heart and chronic kidney disease with heart failure and stage 1 through stage 4 chronic kidney disease, or unspecified chronic kidney disease (principal); J96.01 Acute respiratory failure with hypoxia; I21.A1 Myocardial infarction type 2; G93.41 Metabolic encephalopathy; I50.33 Acute on chronic diastolic (congestive) heart failure; N13.30 Unspecified hydronephrosis; N39.0 Urinary tract infection, site not specified; R00.1 Bradycardia, unspecified; I48.91 Unspecified atrial fibrillation; R33.9 Retention of urine, unspecified; I35.0 Nonrheumatic aortic (valve) stenosis; N18.3 Chronic kidney disease, stage 3 (moderate); E87.5 Hyperkalemia; E11.22 Type 2 diabetes mellitus with diabetic chronic kidney disease; Z20.828 Contact with and (suspected) exposure to other viral communicable diseases; N40.0 Benign prostatic hyperplasia without lower urinary tract symptoms; M19.90 Unspecified osteoarthritis, unspecified site; Z90.49 Acquired absence of other specified parts of digestive tract; Z79.899 Other long term (current) drug therapy; Z79.01 Long term (current) use of anticoagulants; Z79.4 Long term (current) use of insulin
CPT/HCPCS: 36415; 36416; 71045; 71250; 80048; 80053; 81003; 81015; 82553; 82565; 82805; 83605; 83880; 84145; 84484; 85014; 85018; 85025; 85049; 87040; 87086; 87635; 93005; 93010; 96365; 96366; 96367; 96372; 96375; 96376; G0378; J0696; J1250; J1650; J1940; J2543; J3370; J3490; J7050; U0003

== ENCOUNTER 2021-10-26 13:42 | Outpatient (CLI) | payer MEDICARE | END 2021-10-26 13:43 | disposition home or self-care (01) | LOC: ULT 13:42 | PROVIDERS: ATTEND Surgery Surgery of the Hand | DX: M19.041 Primary osteoarthritis, right hand (principal); R22.31 Localized swelling, mass and lump, right upper limb | CPT/HCPCS: 93923 ==